=== PATIENT | female | born 1990 | race Caucasian/White ===

== ENCOUNTER 2017-12-12 18:19 | Emergency (ER) | payer MEDICAID ==
[~2017-12-12] VITALS: Ht 165.1 cm; Wt 65.8 kg
--- NOTE | 2017-12-12 18:20 | NUR ---
MARIA ELENA FROM A COFFEE SHOP DT ALTERED MENTAL STATUS POSSIBLE ETOH. PATIENT IS AWAKE, HOWEVER, PATIENT REFUSED OR IS UNABLE TO ANSWER QUESTIONS BEING ASKED. PT NOT IN DISTRESS. SKIN IS WARM TO TOUCH AND NON DIAPHORETIC. PT IS AFEBRILE. VSS
--- NOTE | 2017-12-12 18:35 | NUR ---
[employer] AT BEDSIDE
--- NOTE | 2017-12-12 19:23 | NUR ---
PT IN BED SLEEPING IN NO APPARENT DISTRESS, PT REPORT RECIVED FROM KRYSTAL ARAUJO, PT ON MONITOR, WILL CONTINUE TO MONITOR.
--- NOTE | 2017-12-12 20:34 | NUR ---
Patient is resting comfortably in bed with eyes closed. Easily aroused. VSS
[2017-12-13 00:08] VITALS: BP 122/68
== END 2017-12-13 00:08 | disposition home or self-care (01) ==
LOC: ER 18:21
DX: F10.129 Alcohol abuse with intoxication, unspecified (principal)
CPT/HCPCS: 99283; A4606; Z7610